=== PATIENT | female | born 1970 | race Caucasian/White ===

== ENCOUNTER → 2019-12-11 | Outpatient (CLI) | payer BC ==
--- NOTE | 2019-12-11 08:05 | US ---
EXAMINATION TYPE: US abdomen complete DATE OF EXAM: 12/11/2019 COMPARISON: None CLINICAL HISTORY: 49-year-old female R10.9 abdominal pain. TECHNIQUE: Multiple sonographic images of the abdomen are obtained. FINDINGS: EXAM MEASUREMENTS: Liver Length: 14.2 cm Gallbladder: Surgically absent CBD: 0.4 cm Spleen: 8.5 cm Right Kidney: 11.4 x 4.4 x 5.1 cm Left Kidney: 10.0 x 5.3 x 4.8 cm Pancreas: Portion of the pancreatic tail is obscured by bowel gas shadowing. Visualized portions wnl Liver: wnl Gallbladder: Surgically absent CBD: wnl Spleen: wnl Kidneys: No hydronephrosis. Upper IVC: wnl Abd Aorta: wnl IMPRESSION: Status post cholecystectomy. No biliary ductal dilatation. No specific abnormality seen.
== END | disposition home or self-care (01) ==
LOC: RADUSWWP 07:00
PROVIDERS: ATTEND Family Medicine
DX: R10.9 Unspecified abdominal pain (principal); Z90.49 Acquired absence of other specified parts of digestive tract
CPT/HCPCS: 76700

== ENCOUNTER → 2019-12-26 | Outpatient (CLI) | payer BC ==
--- NOTE | 2019-12-26 15:44 | CT ---
EXAMINATION TYPE: CT abdomen pelvis wo/w con DATE OF EXAM: 12/26/2019 COMPARISON: CT abdomen 04/24/2014 HISTORY: Left lower quadrant abdominal/pelvic pain. CT DLP: 806.5 mGycm Automated exposure control for dose reduction was used. TECHNIQUE: Helical acquisition of images was performed from the lung bases through the pelvis. CONTRAST: Performed with Oral Contrast and without and with IV Contrast, patient injected with 100ml mL of Isov ue 300. FINDINGS: LUNG BASES: No significant abnormality is appreciated. LIVER/GB: No significant abnormality is appreciated in the liver. Patient is post cholecystectomy PANCREAS: No significant abnormality is seen. SPLEEN: No significant abnormality is seen. ADRENALS: No significant abnormality is seen. KIDNEYS: No significant abnormality is seen. No evident ureteral calculus, there is no hydronephrosis seen FREE AIR: No free air is visualized. RETROPERITONEAL ADENOPATHY: None visualized REPRODUCTIVE ORGANS: Focal area of enhancement within the myometrium suggests underlying fibroid tawanna uring approximately 2.5 cm URINARY BLADDER: No significant abnormality is seen. PELVIC ADENOPATHY: None visualized. OSSEOUS STRUCTURES: No significant abnormality is seen. BOWEL: Thickening along the rectosigmoid colon is nonspecific, but may be muscular hypertrophy, diff icult to exclude mucosal lesion. Suspect post appendectomy change OTHER: IMPRESSION: SUSPECT FIBROID UTERUS. ADDITIONAL NONSPECIFIC FINDINGS DESCRIBED ABOVE.
== END | disposition home or self-care (01) ==
LOC: RADCTMAIN 12:01
PROVIDERS: ATTEND Family Medicine
DX: R10.9 Unspecified abdominal pain (principal)
CPT/HCPCS: 74178; Q9967